=== PATIENT | male | born 1970 ===

== ENCOUNTER 2017-04-11 05:56 | Inpatient (IN) | payer OTHER ==
[2017-04-05 13:04] VITALS: BMI 25.7
[2017-04-11] MEDS ORDERED: Lactated Ringer's 1,000 ML IV ONE ×4 (07:55→12:08)
[2017-04-11] MEDS ORDERED: ceFAZolin IV 2 gm in Dextrose 1 GM/50 ML BAG IVPB ONE (08:07)
[2017-04-11] MEDS ORDERED: Propofol 10 mg/ml Inj (20 ML) ONE (08:08)
[2017-04-11] MEDS ORDERED: Midazolam 2 MG/2 ML VIAL ONE (08:08)
[2017-04-11] MEDS ORDERED: Esmolol 100 mg/10ml Inj IV ONE (08:33)
[2017-04-11] MEDS ORDERED: Metoprolol 1 mg/ml Inj IVP ONE (08:59)
[2017-04-11] MEDS ORDERED: Bacitracin 50,000 UNIT in Sodium Chloride 0.9% Irrig 1,000 ML IR SCH (09:00)
[2017-04-11] MEDS ORDERED: HYDROmorphone 0.5 mg/0.5 ml ISec IVP PRN (09:57)
[2017-04-11] MEDS ORDERED: Morphine 4 MG/ML VIAL ONE ×2 (10:27→12:05)
[2017-04-11] MEDS ORDERED: Neostigmine Methylsulfate 3mg/3ml Syringe IV ONE (11:48)
[2017-04-11] MEDS ORDERED: ceFAZolin IV 1 gm in Dextrose 1 GM/50 ML BAG IVPB ONE ×2 (12:08→15:50)
--- NOTE | 2017-04-11 12:58 | PCM.SURG1 ---
Surgeon's Initial Post Op Note - Surgeon's Notes Surgeon: Celio Lowery MD [facility] Security: Jorge Coombs PA-C Type of Anesthesia: General Endo, [facility] Pre-Operative Diagnosis: Left ankle / Leg. #1 distal tibia comminuted pilon fracture. #2 possible syndesmotic injury Operative Findings: Left ankle / Leg. #1 distal tibia comminuted pilon fracture (extensive comminution and multiple articular fragments). #2 stable syndesmosis Post-Operative Diagnosis: Left ankle / Leg. #1 distal tibia comminuted pilon fracture (extensive comminution and multiple articular fragments). #2 stable syndesmosis Operation Performed: Left ankle/ leg: #1 ORIF distal tibia pilon fracture. #2 bone grafting to distal tibia fracture. #3 examination under anesthesia of syndesmosic ligament. #4 placement in short leg cast Specimen/Specimens Removed: specimen= none. tourniquet time= 120 min at 300mmhg. implants= Synthes distal tibia locking pre-countoured plate and screws. 1x headless compression screw, 2x 3.5 partially threaded cancellous screws for posterior mal fixation. complications= none Estimated Blood Loss: EBL {In ML}: 30 Blood Products Given: N/A Drains Used: No Drains Post-Op Condition: Good Date of Surgery/Procedure: 04/11/17 Time of Surgery/Procedure: 13:01
[2017-04-11] MEDS: HYDROmorphone 0.5 mg/0.5 ml ISec IVP PRN ×3 (13:17→13:35)
[2017-04-11] MEDS ORDERED: Labetalol 25mg/5ml Syringe IVP PRN ×2 (13:42→13:57)
[2017-04-11] MEDS ORDERED: Bupivacaine 0.5% Inj(30mL) ONE (14:01)
--- NOTE | 2017-04-11 14:01 | RAD ---
PROCEDURE: Left Ankle Radiographs. HISTORY: s/p L ankle ORIF COMPARISON: None FINDINGS: BONES: Bony detail obscured by overlying fiberglass cast. Status post ORIF spiral fracture distal tibia, with medial plate and multiple screws. The fracture fragments are in near anatomic alignment. JOINTS: Normal. No osteoarthritis. Ankle mortise maintained. Talar dome intact SOFT TISSUES: Normal. OTHER FINDINGS: None. IMPRESSION: ORIF distal tibial fracture.
[2017-04-11] MEDS ORDERED: Bupivacaine HCl 0.25% PF (10 ml) Inj ONE (14:19)
--- NOTE | 2017-04-11 14:20 | RAD ---
PROCEDURE: Intraoperative Fluoroscopy. HISTORY: LEFT ANKLE fracture FINDINGS: Fluoroscopic assistance was provided for left ankle fracture repair.
--- NOTE | 2017-04-11 14:59 | CP.PCM.PN ---
Subjective - Date & Time of Evaluation Date of Evaluation: 04/11/17 Time of Evaluation: 14:00 - Subjective Subjective: PGY3 on medicine Dr. Nicholas service: Pt seen and examined at PACU s/p left ankle surgery. Medicine consulted for medical management. 47M PMHx HTN and DM fell on 03/26 from his tractor trailer. Pt was diagnosed with tibial fracture and was sent to Ortho Dr. Golden. Today he received left distal tibia ORIF and graft. Pt is drowsy when seen but was answering appropriately and follows command. Denied fever, chills, n/v, chest pain, abdominal pain. Left ankle pain controlled with medication. PMHx: HTN, DM PSHx: denied FMHx: reviewed and not contributory Social: denied ETOH, drugs or tobacco. 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 PMD: Dr. Nicholas Objective - Vital Signs/Intake and Output Vital Signs (last 24 hours): Temp Pulse Resp BP Pulse Ox 98.6 F 109 H 24 186/96 H 100 04/11/17 13:45 04/11/17 13:45 04/11/17 13:45 04/11/17 13:45 04/11/17 13:45 Intake and Output: 04/11/17 04/11/17 06:59 18:59 Intake Total 100 Output Total 400 Balance -300 - Medications Medications: Current Medications Enoxaparin Sodium (Lovenox) 40 mg SC DAILY [facility] Glimepiride (Amaryl) 4 mg PO BID [facility] Home Med (Metformin [Glucophage]) 1,000 mg PO BID [facility] Cefazolin Sodium (Ancef) 1 gm in 50 mls @ 100 mls/hr IVPB Q8 [facility] Insulin Human Regular (Novolin R) 0 unit SC ACHS [facility] PRN Reason: Protocol Labetalol HCl (Trandate) 5 mg IVP Q5M PRN PRN Reason: Systolic Blood Pressure Stop: 04/11/17 15:43 Last Admin: 04/11/17 13:59 Dose: 5 mg Lisinopril (Zestril) 2.5 mg PO DAILY [facility] Metoprolol Succinate (Toprol Xl) 25 mg PO DAILY [facility] Oxycodone/Acetaminophen (Percocet 5/325 Mg Tab) 2 tab PO Q4H PRN PRN Reason: Pain, severe (8-10) Stop: 04/14/17 13:02 - Constitutional Appears: Non-toxic, No Acute Distress - Head Exam Head Exam: NORMOCEPHALIC - Eye Exam Eye Exam: Normal appearance Pupil Exam: NORMAL ACCOMODATION - Respiratory Exam Respiratory Exam: Clear to Ausculation Bilateral, NORMAL BREATHING PATTERN. absent: Wheezes - Cardiovascular Exam Cardiovascular Exam: REGULAR RHYTHM, +S1, +S2. absent: Gallop, Rubs - GI/Abdominal Exam GI & Abdominal Exam: Soft, Normal Bowel Sounds. absent: Tenderness - Extremities Exam Additional comments: left foot elevated and wrapped, dressing c/d/i - Neurological Exam Neurological Exam: Alert, Awake, Oriented x3 - Psychiatric Exam Psychiatric exam: Normal Mood - Skin Skin Exam: Intact Assessment and Plan - Assessment and Plan (Free Text) Assessment: HTN Lisinopril 2.5mg PO daily Toprol XL 25mg PO daily DM Amaryl 4mg PO BID Metformin 1000mg PO BID Accucheck and RISS ACHS Tibial fracture Management as per primary Ortho team. Management as per Dr. Nicholas.
[2017-04-11] MEDS: ceFAZolin 1 gm FROZEN Premix 1 GM/50 ML ML IVPB SCH ×2 (16:12→21:46)
[2017-04-11] MEDS: (Novolin R) Insulin Human Regular 100 units/ml vial SC SCH ×2 (18:04→21:47)
--- NOTE | 2017-04-11 18:15 | PCM.ANESB7 ---
Adductor Canal Block - Adductor Canal Block Procedure Performed: Adductor Canal Block Left - Procedure Adductor Canal Block: The procedure was explained to the patient that it is for the post-operative pain management. Consent was obtained after a thorough discussion with the patient regarding the benefits and possible complications of local anesthetic adductor canal block of the femoral nerve. Standard monitors, as defined by the ASA, were applied to the patient. Time-out was held with the circulating nurse to confirm the appropriate block. After applying supplemental oxygen and administering IV Sedation as needed, the patient was placed in supine position with and the operative leg was flexed slightly at the knee and externally rotated as needed, and was kept anatomically stable. The mid-thigh of the LEFT _ lower extremity was exposed. The ultrasound transducer was then applied transversely along the medial aspect, about midway down the thigh and the femoral artery and vein were identified in appropriate relation with the sartorius muscle. At this time, the saphenous nerve was visualized lateral to the femoral artery within the adductor canal. After thorough identification, this area area was prepped with Chloroprep solution three times and 1 % Lidocaine was injected subcutaneously for topical anesthesia. At this point, a #22 gauge Stimuplex 4-inch needle was inserted in-plane in a [id number] orientation, and advanced toward the femoral nerve. Advancement was performed carefully under direct ultrasound visualization. After negative aspiration, __5_cc of _0.5_% _bupivicaine__was injected and this was followed with 10_cc of _0.5_% _bupivicaine_. Under ultrasound guidance the local anesthetics were observed spreading around the saphenous nerve. The needle was removed intact and sterile dressing was applied. The patient had stable vital signs, was conscious and in no apparent distress. The patient tolerated the saphenous nerve block well with stable vital signs in PACU; no paresthesias or other complaints.
[2017-04-11] MEDS: Oxycodone/Acetaminophen 5/325 mg Tab PO PRN (22:20)
--- NOTE | 2017-04-12 01:58 | OP ---
PROCEDURE DATE: 04/11/2017 SURGEON: Dr. Celio Lowery MD. DISPOSITION CLERK: Jorge Coombs PA-C. JUSTIFICATION FOR DISPOSITION CLERK: Jorge Coombs is a certified physician staffing assistant whose skilled surgical services was an absolute necessity for successful completion of the procedure as he provided skilled surgical assistance with positioning of the patient, positioning of extremity, management of surgical bahena, retraction of the neurovascular structures, maintenance of fracture reduction and placement of temporary and final osteosynthesis hardware, placement of all hardware, wounds closure, placement in cast. Jorge Coombs was present for the entire case and was an absolute necessity for successful completion of the procedure. ANESTHESIA: General endotracheal anesthesia with a postop regional nerve block placed by anesthesia staff in PACU. PREOPERATIVE DIAGNOSES: Left ankle/leg. 1. Distal tibia comminuted, intra-articular pilon fracture. 2. Possible syndesmotic injury. POSTOPERATIVE DIAGNOSES: Left ankle/leg. 1. Distal tibia comminuted pilon fracture (extensive combination of multiple articular fragments). 2. Stable syndesmosis. PROCEDURE: Left ankle/leg. 1. Open reduction and internal fixation of distal tibia pilon fracture. 2. Bone grafting to distal tibia fracture. 3. Examination under anesthesia syndesmotic ligament. 4. Placement of short leg cast. SPECIMEN: None. TOURNIQUET TIME: 120 minutes at 300 mmHg. IMPLANTS: Synthes 2.7/3.5 mm variable angle LCP medial distal tibia, 8 hole precontoured locking plate and screws, one 2.4-mm headless compression screw, 40 mm length; two 3.5 mm cannulated partially threaded screws (all three were posterior malleolus lag screw fixation). COMPLICATIONS: None. ESTIMATED BLOOD LOSS: 30 mL. DISPOSITION: The patient was extubated, transferred to PACU in stable condition and tolerated procedure well. INDICATIONS FOR SURGERY: The patient is a 47-year-old male with a past medical history significant for type 2 diabetes, hypercholesterolemia who presents to the office at [facility] for the first time on 03/29/2017 with left ankle pain, deformity and swelling, since 03/26/2017. This is a workers comp case and the patient was injured at work on 03/26/2017. 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 He was taken to the emergency room on [facility] were after evaluation of the imaging, he was diagnosed with a distal tibia, displaced comminuted fracture and orthopedic consultation was placed, after he was placed in a splint. He was instructed to follow up in my office at [facility] as an outpatient. During that period of time, he was strict nonweightbearing to the left lower extremity and maintained ice and elevation to the left lower extremity to help with the swelling. When he was seen in the office, he underwent closed reduction to the left ankle pilon fracture in the office and placed in a well-padded short leg cast. He was referred for a CAT scan and MRI for better understanding and evaluation of the fracture and injury and preoperative surgical planning. He was indicated for open reduction and internal fixation of the distal tibia pilon fracture and possible need for syndesmotic fixation as well and all related indicated procedures including bone grafting. The risks, benefits and alternatives of the procedure were discussed at length with the patient with the risk including not limited to infection, neurovascular damage, malunion, nonunion, failure of hardware, need for further surgery, development of chronic pain and disability, developed a blood clot including DVT and PE, loss of function, loss of limb, anesthesia reactions including . After answering all of his questions, the patient stated that he understood the risks and wished to proceed with surgery. At his followup visit/preoperative final visit in the office, the swelling had significantly improved and it was determined that it was safe to proceed with surgery and surgery was scheduled on 04/11/2017 at [facility]. He was sent to Dr. Morro Dubon and his PCP for preoperative medical evaluation and clearance as well. PROCEDURE IN DETAIL: The patient was identified in the preoperative holding area and the left ankle was marked for surgery. Once again as described above, the risks, benefits and alternatives of the procedure were discussed at length with the patient and informed consent was obtained. After brief discussion with anesthesia staff, perioperative IV antibiotics in the form of 2 g of Ancef were administered, and the patient was taken to the operating room and placed on the well-padded operating room table with all bony prominences and superficial neurovascular structures well-padded. An initial time-out was done with the surgeon, anesthesia staff and OR staff and all were in agreement with the patient, procedure to be done and extremity to be operated on. General anesthesia was administered without difficulty or complication. The left lower extremity was then prepped and draped in a standard sterile fashion after a tourniquet was placed high in the left thigh. A final time-out was done with the surgeon, anesthesia staff, and OR staff, and all are in agreement with the patient, procedure to be done and extremity to be operated on. The left lower extremity was then exsanguinated and the tourniquet was inflated for a total tourniquet time of 120 minutes at 300 mmHg. A final time-out was done with the surgeon, anesthesia staff, and OR staff, and all are in agreement with the patient, procedure to be done and extremity to be operated on. Procedure was started with a posterior medical approach to the distal tibia to allow for full access to the fracture and placement of the medical distal tibia plate. This also would allow for the wound closure to occur with a buffer zone, not directly over the plate as this patient is a diabetic and wound healing is a concern. Incision made through skin down subcutaneous tissue down to the level of the fascia while maintaining good hemostasis. Sharp incisions were made to the fascia exposing the underlying posterior compartment and deep aspect and the posterior margin of the distal tibia shaft and distal tibia. Dissection was carried out bluntly down to the distal tibia shaft and the periosteum was then elevated anteriorly to allow for exposure to the entire medial shaft starting at the level of the mid shaft down to the articular surface of the pilon fracture. Once this was carried out in satisfaction, the fracture ends were debrided and cleared of any fibrinous tissue and then tissue and anatomic reduction was then carried out. This was confirmed using biplanar fluoroscopic imaging. An 8 hole precontoured medial distal tibia plate was then selected from [employer] and temporarily fixed with K-wires to the medial malleolus and shaft of the tibia while maintaining the fracture reduction with the help of my assistance. Biplanar fluoroscopic imaging was used to confirm maintenance of the fracture reduction. Once this was carried out in satisfaction, the distal cluster locking screws were placed all 2.7 mm for a total of seven 2.7 mm screws, two of which were unicortical at the medial malleolus locked into the plate with good fixation achieved. The plate was then secured to the proximal shaft initially by K-wire fixation but with a 3.5 mm bicortical non-locking cortical screw. Followed by placement of a 4 more bicortical non-locking screws one of which was a 3.5 mm locking screw as well at the most proximal hole. Once this was done to satisfaction, the posterior malleolus sagittal split component of the fracture was then addressed and a large reduction clamp was then placed from posterior to anterior reducing the posterior malleolus fracture. A 2.4-mm headless compression screw was then utilized to hold the reduction as internal fixation. This was a cannulated headless screw and utilizing the [place] cannulated headless screw technique, the 1.1 mm guidewire was then placed from anterior to posterior with biplanar fluoroscopic imaging confirming no intersecting with the screws of the distal medial plate and good fixation of the posterior malleolus fracture achieved. The screw was measured in a 40 mm length, 2.4 headless compression screw was then placed successfully and buried within the bone from anterior to posterior with good fixation achieved. These tests were then repeated for placement of partially threaded 3.5 mm cancellous screw x2 also from anterior to posterior with the head of the screw countersunk for better fixation along the proximal aspect of the posterior malleolus fracture successfully. Once this was carried out in the satisfaction, the final imaging was taken, approximately 2.5 mL of DBM putty was then used to bone graft the fracture as well as other fracture fragments that were found lost in the soft tissue, as there were some anterior defects at the fracture level, which I believe that would help with future healing and leaving to union. This was a significant injury with a coronal split the medial malleolus from the anterolateral aspect of the distal tibia as well as the shaft as well as a sagittal split with a separation of the posterior malleolus with large articular component and significant comminution. In the end, there was an anatomic reduction carried out with good fixation achieved and bone grafting and overall satisfactory result. External rotation stressed the examination under anesthesia was carried out to test the syndesmosis which was found to be stable and no further treatment of the syndesmosis was required. Soft tissue was then copiously irrigated and the medial wound was copiously irrigated as well as the small anterior wound that was created for passage of the screws from anterior to posterior at the level of the distal tibia. All incisions were copiously irrigated and reapproximation was started with closure of the periosteum over the plate with #1-Vicryl suture followed by reapproximation of the subcutaneous tissue and fascia with #1 and 2 plain 0-Vicryl suture followed by april for skin. Sterile dressings were applied followed by a layer sterile cast padding from the toes up to the tibial tuberosity followed by placement in a short leg cast. Once the cast hardened, the patient was extubated and transferred to PACU in stable condition and tolerated the procedure well. DISPOSITION: The patient was extubated and transferred to PACU in stable condition and tolerated the procedure well. He will remain in observation for 24 hours as an inpatient under the medical service. He will be discharged tomorrow after he works with physical therapy and is safe for discharged to home. A strict nonweightbearing to the left lower extremity. He will be started on Lovenox 40 mg once daily. He will follow up in the office at [facility] once he is discharged from the hospital and he will receive adequate pain control in the form of Percocet once he is discharged. Celio Lowery MD
[2017-04-12] MEDS: Oxycodone/Acetaminophen 5/325 mg Tab PO PRN ×5 (02:17→18:32)
[2017-04-12] MEDS: ceFAZolin 1 gm FROZEN Premix 1 GM/50 ML ML IVPB SCH (05:07)
[2017-04-12] MEDS: (Novolin R) Insulin Human Regular 100 units/ml vial SC SCH ×4 (09:12→22:33)
--- NOTE | 2017-04-12 09:20 | CP.PCM.PN ---
Subjective - Date & Time of Evaluation Date of Evaluation: 04/12/17 Time of Evaluation: 09:19 - Subjective Subjective: patient seen and examined at bedside this AM; patient denies any acute events overnight; complaining of pain at site of surgery but is otherwise feeling good. Objective - Vital Signs/Intake and Output Vital Signs (last 24 hours): Temp Pulse Resp BP Pulse Ox 98.9 F 113 H 20 188/97 H 98 04/12/17 08:43 04/12/17 08:43 04/12/17 08:43 04/12/17 08:43 04/12/17 08:43 Intake and Output: 04/12/17 04/12/17 06:59 18:59 Intake Total 550 Balance 550 - Medications Medications: Current Medications Enoxaparin Sodium (Lovenox) 40 mg SC DAILY [facility] Glimepiride (Amaryl) 4 mg PO BID [facility] Last Admin: 04/12/17 09:11 Dose: 4 mg Cefazolin Sodium (Ancef) 1 gm in 50 mls @ 100 mls/hr IVPB Q8 [facility] Last Admin: 04/12/17 05:07 Dose: 100 mls/hr Insulin Human Regular (Novolin R) 0 unit SC ACHS [facility] PRN Reason: Protocol Last Admin: 04/12/17 09:12 Dose: 4 unit Lisinopril (Zestril) 2.5 mg PO DAILY [facility] Last Admin: 04/12/17 09:13 Dose: 2.5 mg Metformin HCl (Glucophage) 1,000 mg PO BID [facility] Last Admin: 04/12/17 09:11 Dose: 1,000 mg Metoprolol Succinate (Toprol Xl) 25 mg PO DAILY [facility] Morphine Sulfate (Morphine) 2 mg IVP STAT ST[facility] Stop: 04/12/17 09:18 Oxycodone/Acetaminophen (Percocet 5/325 Mg Tab) 2 tab PO Q4H PRN PRN Reason: Pain, severe (8-10) Stop: 04/14/17 13:02 Last Admin: 04/12/17 06:17 Dose: 2 tab - Constitutional Appears: Non-toxic - Head Exam Head Exam: ATRAUMATIC - Eye Exam Eye Exam: EOMI - ENT Exam ENT Exam: Mucous Membranes Moist - Neck Exam Neck Exam: Full ROM - Respiratory Exam Respiratory Exam: Clear to Ausculation Bilateral - Cardiovascular Exam Cardiovascular Exam: REGULAR RHYTHM - GI/Abdominal Exam GI & Abdominal Exam: Soft, Normal Bowel Sounds - Extremities Exam Extremities Exam: absent: Calf Tenderness Additional comments: cast in place on the left loewr extremity pulses palpable leg arm - Back Exam Back Exam: absent: CVA tenderness (L), CVA tenderness (R) - Neurological Exam Neurological Exam: Alert, Awake, Oriented x3 - Psychiatric Exam Psychiatric exam: Normal Affect - Skin Skin Exam: Warm Assessment and Plan - Assessment and Plan (Free Text) Assessment: HTN Lisinopril 2.5mg PO daily Toprol XL 25mg PO daily -hydralazine PRN for HTN with parameters if above 180/95 DM Amaryl 4mg PO BID Metformin 1000mg PO BID Accucheck and RISS ACHS Tibial fracture Management as per primary Ortho team patient states pain is not well controlled and didnt sleep well ordered one time dose of morphine 2mg As per Dr. Nicholas, patient is stable to go home Management as per Dr. Nicholas.
[2017-04-12] MEDS: Metoprolol Succinate 25 mg XL Tab PO SCH (09:30)
[2017-04-12] MEDS: Enoxaparin 40 mg Syringe SC SCH (09:30)
[2017-04-12] MEDS ORDERED: Metoprolol Succinate 25 mg XL Tab PO SCH (10:00)
[2017-04-12] MEDS: ceFAZolin IV 2 gm in Dextrose 1 GM/50 ML BAG IVPB SCH ×2 (14:26→21:42)
[2017-04-12] MEDS ORDERED: Oxycodone/Acetaminophen 5/325 mg Tab PO PRN (19:26)
[2017-04-13] MEDS: ceFAZolin IV 2 gm in Dextrose 1 GM/50 ML BAG IVPB SCH ×2 (06:30→13:27)
[2017-04-13 06:40] LABS: BASO % 0.2 % (0.0-2.0); EOS % 0.2 % (0.0-4.0); HEMATOCRIT 41.5 % (35.0-51.0); LYMPH # 1.9 K/uL (1.0-4.3); LYMPH % 10.6 % (20.0-40.0); MEAN CELL VOLUME 83.5 fL (80.0-94.0); MEAN CORPUSCULAR HGB CONC 32.3 g/dL (33.0-37.0); MEAN PLATELET VOLUME 9.2 fL (7.2-11.7); MONO # 1.9 K/uL (0.0-0.8); MONO % 10.6 % (0.0-10.0); RED CELL DISTRIBUTION WIDTH 13.4 % (11.5-14.5); WHITE BLOOD COUNT 17.7 K/uL (4.8-10.8)
[2017-04-13 06:48] LABS: CHLORIDE 97 mmol/L (98-107); POTASSIUM 4.2 mmol/L (3.6-5.2); SODIUM 134 mmol/L (132-148)
[2017-04-13 06:50] LABS: BILIRUBIN,TOTAL 1.2 mg/dL (0.2-1.3); CARBON DIOXIDE 26 mmol/L (22-30); GFR AFRICAN-AMERICAN > 60
[2017-04-13 06:51] LABS: ALKALINE PHOSPHATASE 63 U/L (38-126); ALT/SGPT 32 U/L (21-72); AST/SGOT 16 U/L (17-59); BLOOD UREA NITROGEN 17 mg/dL (9-20); CALCIUM 9.5 mg/dl (8.6-10.4); GLUCOSE,RANDOM 198 mg/dL (75-110); TOTAL PROTEIN 7.4 g/dL (6.3-8.3)
[2017-04-13] MEDS: (Novolin R) Insulin Human Regular 100 units/ml vial SC SCH ×3 (07:50→12:00)
[2017-04-13 08:48] VITALS: BP 141/82; PULSE 125; RESP 17; TEMP 99.1; O2SAT 97
[2017-04-13] MEDS ORDERED: Pantoprazole 40 mg EC Tab PO ONE (11:00)
[2017-04-13] MEDS ORDERED: Aluminum Hydroxide/Magnesium Hydroxide Susp (30 mL) PO ONE (11:00)
--- NOTE | 2017-04-13 11:02 | CP.PCM.PN ---
Subjective - Date & Time of Evaluation Date of Evaluation: 04/13/17 Time of Evaluation: 11:01 - Subjective Subjective: Patient seen and examined at bedside this AM; denies any symptoms except mild upset stomach. Patient is stable to go home as per Dr. Nicholas . Objective - Vital Signs/Intake and Output Vital Signs (last 24 hours): Temp Pulse Resp BP Pulse Ox 99.1 F 125 H 17 141/82 97 04/13/17 07:15 04/13/17 07:15 04/13/17 07:15 04/13/17 07:15 04/13/17 07:15 Intake and Output: 04/13/17 04/13/17 06:59 18:59 Intake Total 370 Output Total 975 Balance -605 - Medications Medications: Current Medications Al Hydrox/Mg Hydrox/Simethicone (Maalox 30 Ml) 30 ml PO ONCE ONE Stop: 04/13/17 11:01 Amlodipine Besylate (Norvasc) 10 mg PO DAILY [facility] Enoxaparin Sodium (Lovenox) 40 mg SC DAILY [facility] Last Admin: 04/12/17 09:30 Dose: 40 mg Glimepiride (Amaryl) 4 mg PO BID [facility] Last Admin: 04/12/17 17:22 Dose: 4 mg Hydralazine HCl (Apresoline) 10 mg IVP Q6H PRN PRN Reason: high bp Last Admin: 04/12/17 22:36 Dose: 10 mg Cefazolin Sodium/Dextrose (Ancef Iv 2 Gm Duplex) 1 gm in 50 mls @ 100 mls/hr IVPB Q8 [facility] Last Admin: 04/13/17 06:30 Dose: 100 mls/hr Insulin Human Regular (Novolin R) 0 unit SC ACHS [facility] PRN Reason: Protocol Last Admin: 04/13/17 07:50 Dose: 3 unit Ketorolac Tromethamine (Toradol) 30 mg IVP Q8 PRN PRN Reason: Pain, severe (8-10) Last Admin: 04/12/17 21:40 Dose: 30 mg Lisinopril (Zestril) 20 mg PO DAILY [facility] Metformin HCl (Glucophage) 1,000 mg PO BID [facility] Last Admin: 04/12/17 17:22 Dose: 1,000 mg Metoprolol Succinate (Toprol Xl) 25 mg PO DAILY [facility] Last Admin: 04/12/17 09:30 Dose: 25 mg Oxycodone/Acetaminophen (Percocet 5/325 Mg Tab) 2 tab PO Q4H PRN PRN Reason: Pain, moderate (4-7) Stop: 04/14/17 13:02 Pantoprazole Sodium (Protonix Ec Tab) 40 mg PO ONCE ONE Stop: 04/13/17 11:01 - Labs Labs: 04/13/17 06:22 04/13/17 06:22 - Constitutional Appears: Non-toxic - Head Exam Head Exam: ATRAUMATIC - Eye Exam Eye Exam: EOMI - ENT Exam ENT Exam: Mucous Membranes Moist - Neck Exam Neck Exam: Full ROM - Respiratory Exam Respiratory Exam: Clear to Ausculation Bilateral, NORMAL BREATHING PATTERN. absent: Rales, Rhonchi, Wheezes - Cardiovascular Exam Cardiovascular Exam: REGULAR RHYTHM - GI/Abdominal Exam GI & Abdominal Exam: Soft, Normal Bowel Sounds - Extremities Exam Extremities Exam: absent: Calf Tenderness - Back Exam Back Exam: NORMAL INSPECTION. absent: CVA tenderness (L), CVA tenderness (R) - Neurological Exam Neurological Exam: Alert, Awake, Oriented x3 - Psychiatric Exam Psychiatric exam: Normal Affect - Skin Skin Exam: Warm Assessment and Plan - Assessment and Plan (Free Text) Assessment: HTN Lisinopril 2.5mg PO daily-->increased to 20mg daily added Amlodipin 10mg daily Toprol XL 25mg PO daily -hydralazine PRN for HTN with parameters if above 180/95 DM Amaryl 4mg PO BID Metformin 1000mg PO BID Accucheck and RISS ACHS Tibial fracture Management as per primary Ortho team As per Dr. Nicholas, patient is stable to go home today after EKG is performed. To follow up with PMD for blood pressure monitoring. Management as per Dr. Nicholas.
[2017-04-13] MEDS: Metoprolol Succinate 25 mg XL Tab PO SCH (11:24)
[2017-04-13] MEDS: Enoxaparin 40 mg Syringe SC SCH (11:24)
--- NOTE | 2017-04-14 14:08 | CARD ---
APPROVED REPORT EKG Measurement Heart [id number] <Conclusion> Sinus tachycardia Otherwise normal ECG
== END 2017-04-13 14:00 | disposition home or self-care (01) | DRG 494 ==
LOC: C.9S 05:56 → C.6T 13:49
PROVIDERS: ADMIT Internal Medicine Pulmonary Disease; ATTEND Internal Medicine Pulmonary Disease
PROC: 0QRH0KZ Replacement of Left Tibia with Nonautologous Tissue Substitute, Open Approach (ICD-10-PCS; 2017-04-11)
PROC: 0QSH04Z Reposition Left Tibia with Internal Fixation Device, Open Approach (ICD-10-PCS; principal; 2017-04-11 07:55)
DX: S82.872A Displaced pilon fracture of left tibia, initial encounter for closed fracture (principal); I10 Essential (primary) hypertension; E11.9 Type 2 diabetes mellitus without complications; V68.4XXA Person boarding or alighting a heavy transport vehicle injured in noncollision transport accident, initial encounter